=== PATIENT | male | born 1945 | race Caucasian/White ===

== ENCOUNTER 2020-09-16 10:01 | Emergency (ER) | payer BC ==
[~2020-09-16] VITALS: Ht 193 cm; Wt 79.2 kg
[2020-09-16 10:20] LABS: ABSOLUTE LYMPHOCYTES 0.7 thou/uL (0.8-5.3); ABSOLUTE MONOCYTES 0.9 thou/uL (0.0-1.2); ABSOLUTE NEUTROPHILS 7.1 thou/uL (1.6-8.1); BASOPHILS 0.5 %; EOSINOPHILS 0.5 %; HEMATOCRIT 44.3 % (42.0-52.0); LYMPHOCYTES 7.7 %; MCH 30.4 pg (26.0-34.0); MCHC 33.8 g/dL (28.0-37.0); MCV 89.9 fL (80.0-100.0); MONOCYTES 10.1 %; MPV 7.6 fl. (7.2-11.1); NUCLEATED RBCS 0 /100WBC; PLATELET COUNT* 150 thou/uL (150-400); POLYS 81.2 %; RBC 4.93 mil/uL (4.50-6.00); RDW-CV 13.2 % (10.5-14.5); WBC 8.8 thou/uL (4.0-11.0)
[2020-09-16 10:36] LABS: CALCIUM 8.8 mg/dL (8.5-10.1); CREATININE 1.1 mg/dL (0.6-1.3); POTASSIUM 3.8 mmol/L (3.5-5.1)
[2020-09-16 10:45] LABS: INR 1.1; PROTIME 10.9 Seconds (9.20-11.50)
[2020-09-16 10:46] LABS: APTT 25.1 Seconds (25.0-31.3)
[2020-09-16 10:49] LABS: ALBUMIN 3.8 g/dL (3.4-5.0); TOTAL BILIRUBIN 0.6 mg/dL (<0.1-1.0); TOTAL PROTEIN 7.5 g/dL (6.4-8.2)
[2020-09-16 12:10] VITALS: BP 125/70
--- NOTE | 2020-09-17 08:22 | EKG ---
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
== END 2020-09-16 12:10 | disposition home or self-care (01) ==
LOC: M.ERS 10:01
PROVIDERS: Family Medicine
DX: S10.83XA Contusion of other specified part of neck, initial encounter (principal); S20.219A Contusion of unspecified front wall of thorax, initial encounter; K21.9 Gastro-esophageal reflux disease without esophagitis; Z86.73 Personal history of transient ischemic attack (TIA), and cerebral infarction without residual deficits; Z85.828 Personal history of other malignant neoplasm of skin; Z88.0 Allergy status to penicillin; W06.XXXA Fall from bed, initial encounter; Y93.89 Activity, other specified; Y92.89 Other specified places as the place of occurrence of the external cause; Y99.8 Other external cause status